=== PATIENT | female | born 1965 | race Caucasian/White ===

== ENCOUNTER 2020-11-20 09:45 | Emergency (ER) | payer OTHER ==
[2020-11-20 09:55] VITALS: BMI 27.4
[2020-11-20] MEDS ORDERED: chlordiazePOXIDE HCL 25 MG CAPSULE PO ONE (10:32)
[2020-11-20] MEDS ORDERED: METOPROLOL TARTRATE 25 MG TABLET (FP) PO ONE (10:39)
[2020-11-20] MEDS ORDERED: chlordiazePOXIDE HCL 25 MG CAPSULE ONE (10:42)
[2020-11-20] MEDS ORDERED: METOPROLOL TARTRATE 25 MG TABLET (FP) ONE (10:43)
[2020-11-20 11:14] LABS: BASO % 0.7 % (0-2.0); EOS % 0.5 % (0-4.5); HEMATOCRIT 42.7 % (32.4-45.2); HEMOGLOBIN 15.1 GM/dL (10.7-15.3); LYMPH % 20.9 % (8-40); MCH 32.5 pg (25.7-33.7); MCHC 35.3 g/dl (32.0-36.0); MEAN CELL VOLUME 91.9 fl (80-96); MEAN PLT VOLUME 8.8 fl (7.5-11.1); MONO % 8.5 % (3.8-10.2); NEUT % 69.4 % (42.8-82.8); PLATELET COUNT 273 K/MM3 (134-434); RBC 4.64 M/mm3 (3.60-5.2); RDW 12.6 % (11.6-15.6); WHITE BLOOD COUNT 6.7 K/mm3 (4.0-10.0)
[2020-11-20 11:23] LABS: INR 0.94 (0.83-1.09); PROTHROMBIN TIME (PATIENT) 11.6 SEC (9.7-13.0)
[2020-11-20 11:26] LABS: ACTIVATED PTT 27.9 SECONDS (25.2-36.5)
[2020-11-20 11:42] LABS: CHLORIDE 100 mmol/L (98-107); POTASSIUM 3.3 mmol/L (3.5-5.1); SODIUM 136 mmol/L (136-145)
[2020-11-20 11:44] LABS: CALCIUM 9.9 mg/dL (8.5-10.1)
[2020-11-20 11:45] LABS: ALBUMIN 4.4 g/dl (3.4-5.0); ANION GAP 10 MMOL/L (8-16); BLOOD UREA NITROGEN 8.6 mg/dL (7-18); CO2 26 mmol/L (21-32); GLUCOSE,RANDOM 140 mg/dL (74-106)
[2020-11-20 11:46] LABS: MAGNESIUM 1.9 mg/dL (1.8-2.4)
[2020-11-20] MEDS ORDERED: POTASSIUM CHLORIDE TABS 20 MEQ TABLET.ER (FP) PO ONE ×2 (11:47→11:58)
[2020-11-20 11:48] LABS: CREATININE 0.8 mg/dL (0.55-1.3); SGOT/AST 63 U/L (15-37); SGPT/ALT 73 U/L (13-61)
[2020-11-20 11:49] LABS: BILIRUBIN,TOTAL 1.2 mg/dL (0.2-1); TOT PROT 8.9 g/dl (6.4-8.2)
[2020-11-20 11:50] LABS: ALK PHOS 101 U/L (45-117)
[2020-11-20] MEDS ORDERED: METOPROLOL TARTRATE 5 MG/5 ML VIAL IVPUSH ONE (12:18)
[2020-11-20] MEDS ORDERED: METOPROLOL TARTRATE 5 MG/5 ML VIAL ONE (12:25)
[2020-11-20] MEDS ORDERED: diazePAM CARPU-JECT 10 MG/2 ML DISP.SYRIN IVPUSH ONE (12:32)
[2020-11-20] MEDS ORDERED: diazePAM CARPU-JECT 10 MG/2 ML DISP.SYRIN ONE (12:34)
[2020-11-20 13:13] VITALS: TEMP 98
[2020-11-20 13:27] VITALS: BP 136/84; PULSE 88
== END 2020-11-20 14:01 | disposition home or self-care (01) ==
LOC: JER 09:45
PROC: 3E033NZ Introduction of Analgesics, Hypnotics, Sedatives into Peripheral Vein, Percutaneous Approach (ICD-10-PCS; principal; 2020-11-20)
PROC: 3E033GC Introduction of Other Therapeutic Substance into Peripheral Vein, Percutaneous Approach (ICD-10-PCS; 2020-11-20)
DX: F10.920 Alcohol use, unspecified with intoxication, uncomplicated (principal); E87.6 Hypokalemia; I10 Essential (primary) hypertension
CPT/HCPCS: 36415; 71045-TC-FY; 80053; 80061; 80307; 82550; 82553; 83721; 83735; 84439; 84443; 84484; 84703; 85025; 85610; 85730; 93005; 93010; 99285-25; C9803; U0003

== ENCOUNTER 2021-09-04 20:27 | Emergency (ER) | payer OTHER ==
[2021-09-04 20:59] VITALS: PULSE 80; TEMP 98; BMI 29.7
[2021-09-04] MEDS ORDERED: THIAMINE HCL 200 MG/2 ML VIAL IVPB ONE (22:16)
[2021-09-04] MEDS ORDERED: MULTIVITAMINS (DAILY MVI) TABLET (FP) PO ONE (22:16)
[2021-09-04] MEDS ORDERED: FOLIC ACID 1 MG TABLET (FP) PO ONE (22:16)
[2021-09-04] MEDS ORDERED: THIAMINE HCL 200 MG/2 ML VIAL ONE (22:54)
[2021-09-04] MEDS ORDERED: MULTIVITAMINS (DAILY MVI) TABLET (FP) ONE (22:55)
[2021-09-04] MEDS ORDERED: FOLIC ACID 1 MG TABLET (FP) ONE (22:56)
[2021-09-04 23:35] LABS: BASO % 0.6 % (0-2.0); EOS % 2.9 % (0-4.5); HEMATOCRIT 41.9 % (32.4-45.2); HEMOGLOBIN 14.5 GM/dL (10.7-15.3); LYMPH % 59.8 % (8-40); MCH 33.2 pg (25.7-33.7); MCHC 34.7 g/dl (32.0-36.0); MEAN CELL VOLUME 95.6 fl (80-96); MEAN PLT VOLUME 8.1 fl (7.5-11.1); MONO % 4.7 % (3.8-10.2); PLATELET COUNT 249 10^3/uL (134-434); RBC 4.38 M/mm3 (3.60-5.2); RDW 13.2 % (11.6-15.6)
[2021-09-04 23:41] LABS: INR 0.97 (0.83-1.09); PROTHROMBIN TIME (PATIENT) 11.4 SEC (9.7-13.0)
[2021-09-04 23:44] LABS: ACTIVATED PTT 28.1 SECONDS (25.2-36.5)
[2021-09-05 00:20] LABS: CHLORIDE 113 mmol/L (98-107); SODIUM 146 mmol/L (136-145)
[2021-09-05 00:27] LABS: ALBUMIN 3.5 g/dl (3.4-5.0); ANION GAP 12 MMOL/L (8-16); BLOOD UREA NITROGEN 11.7 mg/dL (7-18); CALCIUM 8.1 mg/dL (8.5-10.1); CO2 21 mmol/L (21-32); LIPASE 165 U/L (73-393); MAGNESIUM 2.4 mg/dL (1.8-2.4)
[2021-09-05 00:30] LABS: CREATININE 0.7 mg/dL (0.55-1.3); SGOT/AST 182 U/L (15-37); SGPT/ALT 166 U/L (13-61)
[2021-09-05 00:31] LABS: BILIRUBIN,TOTAL 0.5 mg/dL (0.2-1); TOT PROT 7.9 g/dl (6.4-8.2)
[2021-09-05 00:32] LABS: ALK PHOS 103 U/L (45-117)
[2021-09-05 00:33] LABS: GLUCOSE,RANDOM 91 mg/dL (74-106)
[2021-09-05 02:46] VITALS: BP 133/71
== END 2021-09-05 02:48 | disposition home or self-care (01) ==
LOC: JER 20:27
PROC: 3E033NZ Introduction of Analgesics, Hypnotics, Sedatives into Peripheral Vein, Percutaneous Approach (ICD-10-PCS; principal; 2021-09-04)
DX: R07.9 Chest pain, unspecified (principal); R06.09 Other forms of dyspnea; F10.10 Alcohol abuse, uncomplicated
CPT/HCPCS: 36415; 71046-TC-FY; 80053; 82550; 83690; 83735; 84484; 85025; 85610; 85730; 87804; 87807; 93005; 93010; 96374; 99284-25; C9803; U0003; U0005

== ENCOUNTER 2021-09-23 22:55 | Inpatient (IN) | payer OTHER ==
[2021-09-24] MEDS ORDERED: ACETAMINOPHEN 500 MG TABLET (FP) PO ONE (01:29)
[2021-09-24 03:12] LABS: HEMATOCRIT 39.6 % (32.4-45.2); HEMOGLOBIN 14.1 GM/dL (10.7-15.3); MCH 33.7 pg (25.7-33.7); MCHC 35.6 g/dl (32.0-36.0); MEAN CELL VOLUME 94.6 fl (80-96); MEAN PLT VOLUME 8.2 fl (7.5-11.1); PLATELET COUNT 154 10^3/uL (134-434); RBC 4.19 M/mm3 (3.60-5.2); RDW 13.2 % (11.6-15.6); WHITE BLOOD COUNT 4.3 K/mm3 (4.0-10.0)
[2021-09-24] MEDS ORDERED: LORazepam 2 MG/ML SDV VIAL IVPUSH ONE (03:13)
[2021-09-24 03:20] LABS: INR 1.03 (0.83-1.09); PROTHROMBIN TIME (PATIENT) 11.8 SEC (9.7-13.0)
[2021-09-24 03:22] LABS: ACTIVATED PTT 24.8 SECONDS (25.2-36.5)
[2021-09-24 03:32] LABS: CHLORIDE 98 mmol/L (98-107); SODIUM 135 mmol/L (136-145)
[2021-09-24 03:34] LABS: CALCIUM 8.9 mg/dL (8.5-10.1)
[2021-09-24 03:35] LABS: ALBUMIN 4.2 g/dl (3.4-5.0); ANION GAP 14 MMOL/L (8-16); BLOOD UREA NITROGEN 8.8 mg/dL (7-18); CO2 23 mmol/L (21-32); GLUCOSE,RANDOM 142 mg/dL (74-106)
[2021-09-24 03:38] LABS: CREATININE 0.6 mg/dL (0.55-1.3); SGOT/AST 554 U/L (15-37); SGPT/ALT 396 U/L (13-61)
[2021-09-24 03:40] LABS: BILIRUBIN,TOTAL 1.5 mg/dL (0.2-1)
[2021-09-24 03:41] LABS: ALK PHOS 135 U/L (45-117)
[2021-09-24] MEDS ORDERED: LORazepam 2 MG/ML SDV VIAL ONE (03:43)
[2021-09-24 03:56] LABS: LACTIC ACID 3.7 mmol/L (0.4-2.0)
[2021-09-24] MEDS ORDERED: LACTATED RINGERS SOLUTION 1000 ML INFUS.BAG IV ONE ×2 (04:02→04:11)
[2021-09-24 05:33] LABS: EPI CELLS >36 /uL (0-25.1); HYALINE CASTS 4 /uL (0-3.1); PH,URINE 6.5 (5.0-8.0); URINE APPEARANCE CLOUDY; URINE BILIRUBIN 1+ (NEGATIVE); URINE COLOR DK YELLOW; URINE GLUCOSE (UA) NEGATIVE (NEGATIVE); URINE KETONE 1+ (NEGATIVE); URINE LEUK ESTERASE NEGATIVE (NEGATIVE); URINE NITRITE NEGATIVE (NEGATIVE); URINE PROTEIN 2+ (NEGATIVE); URINE RBC 10 /uL (0-23.9); URINE WBC 40 /uL (0-25.8)
[2021-09-24] MEDS ORDERED: LORazepam 1 MG TABLET PO PRN (05:55)
[2021-09-24] MEDS ORDERED: LORazepam 1 MG TABLET ONE (06:28)
[2021-09-24] MEDS ORDERED: SODIUM CHLORIDE 1,000 ML IV STA (07:02)
[2021-09-24] MEDS: LORazepam 2 MG TABLET PO SCH ×3 (07:07→17:21)
[2021-09-24] MEDS ORDERED: SODIUM CHLORIDE 0.9% 500 ML INFUS.BAG IV ONE (07:45)
[2021-09-24] MEDS ORDERED: METOPROLOL TARTRATE 25 MG TABLET (FP) ONE (09:02)
[2021-09-24] MEDS ORDERED: ENOXAPARIN NA (PORCINE) 40 MG/0.4 ML DISP.SYRIN SQ ONE (09:02)
[2021-09-24 10:15] LABS: URINE BACTERIA 289.4 /uL (0-1359)
[2021-09-24] MEDS: METOPROLOL TARTRATE 25 MG TABLET (FP) PO SCH ×2 (11:00→21:53)
[2021-09-24] MEDS: ENOXAPARIN NA (PORCINE) 40 MG/0.4 ML DISP.SYRIN SQ SCH (11:29)
[2021-09-24] MEDS ORDERED: amLODIPine BESYLATE 2.5 MG TABLET (FP) ONE (12:15)
[2021-09-24] MEDS: amLODIPine BESYLATE 5 MG TABLET (FP) PO SCH (12:20)
[2021-09-24 12:57] LABS: HEMATOCRIT 38.1 % (32.4-45.2); HEMOGLOBIN 13.1 GM/dL (10.7-15.3); MCHC 34.4 g/dl (32.0-36.0); MEAN CELL VOLUME 95.9 fl (80-96); MEAN PLT VOLUME 9.2 fl (7.5-11.1); PLATELET COUNT 142 10^3/uL (134-434); RBC 3.97 M/mm3 (3.60-5.2); RDW 13.3 % (11.6-15.6); WHITE BLOOD COUNT 2.8 K/mm3 (4.0-10.0)
[2021-09-24 12:58] LABS: INR 1.1 (0.83-1.09); PROTHROMBIN TIME (PATIENT) 12.7 SEC (9.7-13.0)
[2021-09-24 13:52] LABS: CHLORIDE 98 mmol/L (98-107); SODIUM 136 mmol/L (136-145)
[2021-09-24 14:03] LABS: ALBUMIN 3.8 g/dl (3.4-5.0); CALCIUM 9.2 mg/dL (8.5-10.1); SGPT/ALT 333 U/L (13-61)
[2021-09-24 14:04] VITALS: BMI 27.8
[2021-09-24 14:04] LABS: ANION GAP 10 MMOL/L (8-16); BLOOD UREA NITROGEN 8.6 mg/dL (7-18); CO2 28 mmol/L (21-32); GLUCOSE,RANDOM 119 mg/dL (74-106); LIPASE 314 U/L (73-393); MAGNESIUM 2.2 mg/dL (1.8-2.4)
[2021-09-24 14:07] LABS: CREATININE 0.6 mg/dL (0.55-1.3); SGOT/AST 449 U/L (15-37); TOT PROT 7.4 g/dl (6.4-8.2)
[2021-09-24 14:08] LABS: ALK PHOS 122 U/L (45-117); BILIRUBIN,TOTAL 2.9 mg/dL (0.2-1)
[2021-09-24] MEDS ORDERED: PNEUMOC 13-VAL CONJ-DIP CRM/PF 0.5 ML DISP.SYRIN IM ONE (14:16)
[2021-09-24] MEDS ORDERED: FLU VACC QS2021-22(6MOS UP)/PF 60 MCG/0.5 ML SYRINGE IM ONE (17:00)
[2021-09-24] MEDS ORDERED: PNEUMOCOCCAL 23 VACCINE 0.5 ML VIAL IM ONE (17:00)
[2021-09-24] MEDS: LORazepam 1 MG TABLET PO SCH (18:06)
[2021-09-25] MEDS ORDERED: LORazepam 1 MG TABLET PO ONE (03:44)
[2021-09-25] MEDS: LORazepam 1 MG TABLET PO SCH ×5 (05:15→23:07)
[2021-09-25] MEDS: LACTULOSE 20 GM/30 ML UDC (FOR ORAL USE ONLY) PO SCH ×3 (08:31→21:44)
[2021-09-25] MEDS: amLODIPine BESYLATE 5 MG TABLET (FP) PO SCH (09:06)
[2021-09-25] MEDS: METOPROLOL TARTRATE 25 MG TABLET (FP) PO SCH ×2 (09:07→21:44)
[2021-09-25] MEDS: ENOXAPARIN NA (PORCINE) 40 MG/0.4 ML DISP.SYRIN SQ SCH (09:07)
[2021-09-25] MEDS: LISINOPRIL 10 MG TABLET PO SCH (09:23)
[2021-09-25] MEDS ORDERED: NIFEdipine E.R 60 MG TABLET PO SCH (10:30)
[2021-09-25 10:35] LABS: HEMOGLOBIN 13.7 GM/dL (10.7-15.3); MCHC 34.1 g/dl (32.0-36.0); MEAN CELL VOLUME 96.7 fl (80-96); MEAN PLT VOLUME 9.6 fl (7.5-11.1); PLATELET COUNT 142 10^3/uL (134-434); RBC 4.14 M/mm3 (3.60-5.2); WHITE BLOOD COUNT 2.6 K/mm3 (4.0-10.0)
[2021-09-25 10:41] LABS: INR 1.02 (0.83-1.09); PROTHROMBIN TIME (PATIENT) 11.7 SEC (9.7-13.0)
[2021-09-25 10:50] LABS: ALBUMIN 3.8 g/dl (3.4-5.0); CALCIUM 9.6 mg/dL (8.5-10.1)
[2021-09-25 10:51] LABS: BLOOD UREA NITROGEN 9.3 mg/dL (7-18)
[2021-09-25 10:54] LABS: CREATININE 0.7 mg/dL (0.55-1.3)
[2021-09-25 10:55] LABS: BILIRUBIN,TOTAL 2.5 mg/dL (0.2-1); TOT PROT 7.5 g/dl (6.4-8.2)
[2021-09-25] MEDS ORDERED: LISINOPRIL 5 MG TABLET PO ONE (23:28)
[2021-09-26] MEDS ORDERED: LORazepam 0.5 MG TABLET PO PRN
[2021-09-26] MEDS: LORazepam 0.5 MG TABLET PO SCH ×4 (06:03→22:23)
[2021-09-26] MEDS: LACTULOSE 20 GM/30 ML UDC (FOR ORAL USE ONLY) PO SCH (06:04)
[2021-09-26] MEDS ORDERED: NIFEdipine E.R 60 MG TABLET PO SCH (10:00)
[2021-09-26] MEDS: ENOXAPARIN NA (PORCINE) 40 MG/0.4 ML DISP.SYRIN SQ SCH (10:24)
[2021-09-26] MEDS: METOPROLOL TARTRATE 25 MG TABLET (FP) PO SCH ×2 (10:29→22:22)
[2021-09-26] MEDS: LISINOPRIL 10 MG TABLET PO SCH (10:29)
[2021-09-26 10:41] LABS: HEMATOCRIT 41.3 % (32.4-45.2); HEMOGLOBIN 14.1 GM/dL (10.7-15.3); MCH 32.9 pg (25.7-33.7); MCHC 34.2 g/dl (32.0-36.0); MEAN CELL VOLUME 96.2 fl (80-96); MEAN PLT VOLUME 9.7 fl (7.5-11.1); PLATELET COUNT 147 10^3/uL (134-434); RBC 4.29 M/mm3 (3.60-5.2); RDW 13.4 % (11.6-15.6); WHITE BLOOD COUNT 3.4 K/mm3 (4.0-10.0)
[2021-09-26 10:45] LABS: INR 1.04 (0.83-1.09)
[2021-09-26 11:00] LABS: CALCIUM 9.7 mg/dL (8.5-10.1)
[2021-09-26 11:01] LABS: BLOOD UREA NITROGEN 6.9 mg/dL (7-18)
[2021-09-26 11:04] LABS: CREATININE 0.7 mg/dL (0.55-1.3)
[2021-09-26 11:06] LABS: BILIRUBIN,TOTAL 2.3 mg/dL (0.2-1); TOT PROT 7.9 g/dl (6.4-8.2)
[2021-09-26] MEDS: POTASSIUM CHLORIDE TABS 20 MEQ TABLET.ER (FP) PO SCH ×2 (17:42→22:22)
[2021-09-26 18:57] LABS: COCAINE, UR NEGATIVE (NEGATIVE); METHADONE, UR NEGATIVE (NEGATIVE); OPIATES, URI NEGATIVE (NEGATIVE); PHENCYCLIDINE,URINE NEGATIVE (NEGATIVE); URINE AMPHETAMINES NEGATIVE (NEGATIVE); URINE BARBITURATES NEGATIVE (NEGATIVE); URINE BENZODIAZEPINES NEGATIVE (NEGATIVE)
[2021-09-26] MEDS ORDERED: LISINOPRIL 10 MG TABLET PO SCH (19:03)
[2021-09-27] MEDS ORDERED: hydrALAZINE HCL 20 MG/ML VIAL IVPUSH ONE (00:20)
[2021-09-27] MEDS ORDERED: LORazepam 0.5 MG TABLET PO ONE (05:00)
[2021-09-27] MEDS ORDERED: LACTULOSE 20 GM/30 ML UDC (FOR ORAL USE ONLY) PO SCH (10:00)
[2021-09-27] MEDS: ENOXAPARIN NA (PORCINE) 40 MG/0.4 ML DISP.SYRIN SQ SCH (11:12)
[2021-09-27] MEDS: METOPROLOL TARTRATE 25 MG TABLET (FP) PO SCH ×2 (11:13→22:24)
[2021-09-27] MEDS: LISINOPRIL 20 MG TABLET PO SCH (11:13)
[2021-09-27 11:24] LABS: HEMATOCRIT 40.5 % (32.4-45.2); HEMOGLOBIN 13.8 GM/dL (10.7-15.3); MCH 33.1 pg (25.7-33.7); MCHC 34.1 g/dl (32.0-36.0); MEAN CELL VOLUME 97.1 fl (80-96); MEAN PLT VOLUME 9.7 fl (7.5-11.1); PLATELET COUNT 142 10^3/uL (134-434); RBC 4.17 M/mm3 (3.60-5.2); RDW 13.3 % (11.6-15.6); WHITE BLOOD COUNT 3.3 K/mm3 (4.0-10.0)
[2021-09-27 11:25] LABS: INR 0.99 (0.83-1.09); PROTHROMBIN TIME (PATIENT) 11.4 SEC (9.7-13.0)
[2021-09-27 12:18] LABS: ALBUMIN 3.6 g/dl (3.4-5.0); BLOOD UREA NITROGEN 13.5 mg/dL (7-18)
[2021-09-27 12:20] LABS: CALCIUM 9.5 mg/dL (8.5-10.1); MAGNESIUM 2.4 mg/dL (1.8-2.4)
[2021-09-27 12:21] LABS: CREATININE 0.7 mg/dL (0.55-1.3)
[2021-09-27 12:23] LABS: BILIRUBIN,TOTAL 1.3 mg/dL (0.2-1); TOT PROT 7.4 g/dl (6.4-8.2)
[2021-09-27 22:06] LABS: HCV RNA GENOTYPE 1b (.)
[2021-09-28] MEDS: LISINOPRIL 20 MG TABLET PO SCH (10:14)
[2021-09-28] MEDS: METOPROLOL TARTRATE 25 MG TABLET (FP) PO SCH ×2 (10:14→21:59)
[2021-09-28] MEDS: ENOXAPARIN NA (PORCINE) 40 MG/0.4 ML DISP.SYRIN SQ SCH (10:14)
[2021-09-28 11:01] LABS: HEMATOCRIT 40.6 % (32.4-45.2); MCH 33.8 pg (25.7-33.7); MCHC 34.5 g/dl (32.0-36.0); MEAN CELL VOLUME 97.9 fl (80-96); MEAN PLT VOLUME 9.4 fl (7.5-11.1); PLATELET COUNT 152 10^3/uL (134-434); RBC 4.15 M/mm3 (3.60-5.2); RDW 13.5 % (11.6-15.6); WHITE BLOOD COUNT 3.7 K/mm3 (4.0-10.0)
[2021-09-28 11:10] LABS: INR 0.99 (0.83-1.09); PROTHROMBIN TIME (PATIENT) 11.4 SEC (9.7-13.0)
[2021-09-28 11:36] LABS: BLOOD UREA NITROGEN 13.4 mg/dL (7-18); CALCIUM 9.5 mg/dL (8.5-10.1)
[2021-09-28 11:37] LABS: ALBUMIN 3.8 g/dl (3.4-5.0); MAGNESIUM 2.1 mg/dL (1.8-2.4)
[2021-09-28 11:39] LABS: BILIRUBIN,DIRECT 0.5 mg/dL (0.0-0.2); CREATININE 0.6 mg/dL (0.55-1.3)
[2021-09-28 11:41] LABS: BILIRUBIN,TOTAL 1.1 mg/dL (0.2-1); TOT PROT 7.6 g/dl (6.4-8.2)
[2021-09-28] MEDS: LACTULOSE 20 GM/30 ML UDC (FOR ORAL USE ONLY) PO SCH (21:59)
[2021-09-29] MEDS: LACTULOSE 20 GM/30 ML UDC (FOR ORAL USE ONLY) PO SCH ×3 (05:07→21:47)
[2021-09-29] MEDS: LISINOPRIL 20 MG TABLET PO SCH (09:28)
[2021-09-29] MEDS: METOPROLOL TARTRATE 25 MG TABLET (FP) PO SCH ×2 (09:28→21:47)
[2021-09-29] MEDS: ENOXAPARIN NA (PORCINE) 40 MG/0.4 ML DISP.SYRIN SQ SCH (09:28)
[2021-09-29 10:02] LABS: EOS % 3.7 % (0-4.5); HEMATOCRIT 42.8 % (32.4-45.2); HEMOGLOBIN 14.5 GM/dL (10.7-15.3); LYMPH % 41.2 % (8-40); MCH 33.4 pg (25.7-33.7); MCHC 33.8 g/dl (32.0-36.0); MEAN CELL VOLUME 98.8 fl (80-96); MEAN PLT VOLUME 9.6 fl (7.5-11.1); MONO % 14.9 % (3.8-10.2); NEUT % 39.2 % (42.8-82.8); PLATELET COUNT 185 10^3/uL (134-434); RBC 4.33 M/mm3 (3.60-5.2); RDW 13.6 % (11.6-15.6); WHITE BLOOD COUNT 3.5 K/mm3 (4.0-10.0)
[2021-09-29 10:27] LABS: BLOOD UREA NITROGEN 11.2 mg/dL (7-18)
[2021-09-29 10:28] LABS: ALBUMIN 4.2 g/dl (3.4-5.0); CALCIUM 10.1 mg/dL (8.5-10.1); CREATININE 0.7 mg/dL (0.55-1.3)
[2021-09-29 10:30] LABS: BILIRUBIN,TOTAL 1.2 mg/dL (0.2-1); TOT PROT 8.2 g/dl (6.4-8.2)
[2021-09-29 10:31] LABS: BILIRUBIN,DIRECT 0.5 mg/dL (0.0-0.2)
[2021-09-30] MEDS: LACTULOSE 20 GM/30 ML UDC (FOR ORAL USE ONLY) PO SCH ×2 (05:51→13:08)
[2021-09-30] MEDS: ENOXAPARIN NA (PORCINE) 40 MG/0.4 ML DISP.SYRIN SQ SCH (09:15)
[2021-09-30] MEDS: METOPROLOL TARTRATE 25 MG TABLET (FP) PO SCH (09:15)
[2021-09-30] MEDS: LISINOPRIL 20 MG TABLET PO SCH (09:15)
[2021-09-30 10:50] VITALS: BP 113/77; PULSE 63; TEMP 98.3
[2021-09-30 12:28] LABS: BASO % 1.2 % (0-2.0); EOS % 2.3 % (0-4.5); HEMATOCRIT 42.6 % (32.4-45.2); HEMOGLOBIN 14.2 GM/dL (10.7-15.3); LYMPH % 37.9 % (8-40); MCH 33.2 pg (25.7-33.7); MCHC 33.3 g/dl (32.0-36.0); MEAN CELL VOLUME 99.7 fl (80-96); MEAN PLT VOLUME 9.8 fl (7.5-11.1); MONO % 18.6 % (3.8-10.2); PLATELET COUNT 198 10^3/uL (134-434); RBC 4.28 M/mm3 (3.60-5.2); RDW 13.8 % (11.6-15.6); WHITE BLOOD COUNT 3.6 K/mm3 (4.0-10.0)
[2021-09-30 13:00] LABS: ALBUMIN 4.2 g/dl (3.4-5.0); BLOOD UREA NITROGEN 12.1 mg/dL (7-18); MAGNESIUM 2.6 mg/dL (1.8-2.4)
[2021-09-30 13:02] LABS: BILIRUBIN,DIRECT 0.5 mg/dL (0.0-0.2); CREATININE 0.7 mg/dL (0.55-1.3); PHOSPHOROUS 3.9 mg/dL (2.5-4.9)
[2021-09-30 13:04] LABS: ACTIVATED PTT 31.1 SECONDS (25.2-36.5); TOT PROT 8.4 g/dl (6.4-8.2)
[2021-09-30 13:07] LABS: INR 0.97 (0.83-1.09); PROTHROMBIN TIME (PATIENT) 11.2 SEC (9.7-13.0)
[2021-09-30 20:09] LABS: GLIADIN ANTIBODY IGA 2 units (0-19); GLIADIN ANTIBODY IGG 1 units (0-19); TRANSGLUTAMINASE IGG 4 U/mL (0-5)
== END 2021-09-30 14:43 | disposition home or self-care (01) | DRG 775 ==
LOC: JER 22:55 → JERBED 09-24 05:21 → J5S 09-24 13:21
PROVIDERS: ADMIT Hospitalist
DX: F10.230 Alcohol dependence with withdrawal, uncomplicated (principal); G93.41 Metabolic encephalopathy; I10 Essential (primary) hypertension; Z91.14 Patient's other noncompliance with medication regimen; B19.20 Unspecified viral hepatitis C without hepatic coma; R07.89 Other chest pain; R19.7 Diarrhea, unspecified; R74.01 Elevation of levels of liver transaminase levels; E87.1 Hypo-osmolality and hyponatremia; E86.0 Dehydration; D72.819 Decreased white blood cell count, unspecified; K70.10 Alcoholic hepatitis without ascites; K72.90 Hepatic failure, unspecified without coma; R79.89 Other specified abnormal findings of blood chemistry
CPT/HCPCS: 36415; 71046-TC-FY; 74181-TC; 76705-TC; 80053; 80076; 80307; 81003; 82105; 82140; 82550; 82553; 82728; 82784; 83516; 83540; 83550; 83605; 83690; 83735; 84100; 84484; 85025; 85027; 85610; 85730; 86038; 86704; 86705; 86707; 86709; 86803; 87086; 87186; 87350; 87517; 87522; 87799; 87804; 87902; 93005; 93010; 97116-GP; 97161-GP; 99285-25; C9803; U0003; U0005

== ENCOUNTER 2021-11-10 19:51 | Inpatient (IN) | payer OTHER ==
[2021-11-10 20:18] VITALS: BMI 26.4
[2021-11-10] MEDS ORDERED: SODIUM CHLORIDE 1,000 ML IV STA (20:21)
[2021-11-10 21:37] LABS: BASO % 0.9 % (0-2.0); HEMATOCRIT 42.3 % (32.4-45.2); HEMOGLOBIN 14.7 GM/dL (10.7-15.3); LYMPH % 22.4 % (8-40); MCH 33.2 pg (25.7-33.7); MCHC 34.8 g/dl (32.0-36.0); MEAN CELL VOLUME 95.3 fl (80-96); MEAN PLT VOLUME 8.1 fl (7.5-11.1); MONO % 9.5 % (3.8-10.2); NEUT % 67.2 % (42.8-82.8); PLATELET COUNT 315 10^3/uL (134-434); RBC 4.44 M/mm3 (3.60-5.2); RDW 13.7 % (11.6-15.6); WHITE BLOOD COUNT 6.9 K/mm3 (4.0-10.0)
[2021-11-10 21:54] LABS: CHLORIDE 102 mmol/L (98-107); SODIUM 136 mmol/L (136-145)
[2021-11-10 21:56] LABS: BLOOD UREA NITROGEN 9.9 mg/dL (7-18); CO2 27 mmol/L (21-32)
[2021-11-10 21:57] LABS: GLUCOSE,RANDOM 129 mg/dL (74-106)
[2021-11-10 21:59] LABS: CREATININE 2.6 mg/dL (0.55-1.3); SGOT/AST 103 U/L (15-37); SGPT/ALT 80 U/L (13-61)
[2021-11-10 22:01] LABS: BILIRUBIN,TOTAL 0.7 mg/dL (0.2-1); TOT PROT 8.5 g/dl (6.4-8.2)
[2021-11-10 22:02] LABS: ALK PHOS 104 U/L (45-117)
[2021-11-10 22:16] LABS: ANION GAP 7 MMOL/L (8-16)
[2021-11-10 22:59] LABS: ACTIVATED PTT 32.5 SECONDS (25.2-36.5); INR 0.99 (0.83-1.09); PROTHROMBIN TIME (PATIENT) 11.4 SEC (9.7-13.0)
[2021-11-10 23:00] LABS: CALCIUM 8.8 mg/dL (8.5-10.1)
[2021-11-10 23:01] LABS: ALBUMIN 4.1 g/dl (3.4-5.0)
[2021-11-10 23:03] LABS: CREATININE 2.6 mg/dL (0.55-1.3)
[2021-11-10 23:05] LABS: BILIRUBIN,TOTAL 0.7 mg/dL (0.2-1); TOT PROT 7.6 g/dl (6.4-8.2)
[2021-11-10] MEDS ORDERED: FOLIC ACID INJECTION - 1 MG, THIAMINE HCL 100 MG, MULTIVIT INJECTION ADULT 10 ML in SOD... IVPB ONE (23:36)
[2021-11-11 01:00] LABS: MAGNESIUM 2.2 mg/dL (1.8-2.4)
[2021-11-11] MEDS ORDERED: SODIUM CHLORIDE 1,000 ML IV SCH (01:00)
[2021-11-11] MEDS ORDERED: LORazepam 2 MG/ML SDV VIAL IVPUSH PRN ×2 (01:02→11:21)
[2021-11-11 01:04] LABS: PHOSPHOROUS 4.2 mg/dL (2.5-4.9)
[2021-11-11] MEDS ORDERED: HEPARIN NA (PORCINE) 5,000 UNITS/ML 1ML VIAL ONE (06:21)
[2021-11-11] MEDS: HEPARIN NA (PORCINE) 5,000 UNITS/ML 1ML VIAL SQ SCH ×3 (06:24→22:21)
[2021-11-11 08:36] LABS: BASO % 0.4 % (0-2.0); EOS % 0.1 % (0-4.5); HEMATOCRIT 34.4 % (32.4-45.2); HEMOGLOBIN 12.3 GM/dL (10.7-15.3); LYMPH % 29.6 % (8-40); MCH 33.9 pg (25.7-33.7); MCHC 35.7 g/dl (32.0-36.0); MEAN CELL VOLUME 94.9 fl (80-96); MEAN PLT VOLUME 8.5 fl (7.5-11.1); NEUT % 60.9 % (42.8-82.8); PLATELET COUNT 261 10^3/uL (134-434); RBC 3.62 M/mm3 (3.60-5.2); RDW 13.6 % (11.6-15.6); WHITE BLOOD COUNT 6.8 K/mm3 (4.0-10.0)
[2021-11-11 08:58] LABS: ALBUMIN 3.5 g/dl (3.4-5.0); CALCIUM 8.1 mg/dL (8.5-10.1)
[2021-11-11 08:59] LABS: BLOOD UREA NITROGEN 10.1 mg/dL (7-18); MAGNESIUM 2.2 mg/dL (1.8-2.4)
[2021-11-11 09:02] LABS: PHOSPHOROUS 5.1 mg/dL (2.5-4.9)
[2021-11-11 09:03] LABS: BILIRUBIN,TOTAL 0.8 mg/dL (0.2-1); TOT PROT 6.5 g/dl (6.4-8.2)
[2021-11-11] MEDS: THIAMINE HCL 100 MG TABLET (FP) PO SCH (10:35)
[2021-11-11] MEDS: NICOTINE 14 MG/24 HOURS TOPICAL PATCH TD SCH (10:35)
[2021-11-11] MEDS: FOLIC ACID 1 MG TABLET (FP) PO SCH (10:35)
[2021-11-11] MEDS ORDERED: FOLIC ACID 1 MG TABLET (FP) ONE (10:51)
[2021-11-11] MEDS ORDERED: THIAMINE HCL 100 MG TABLET (FP) ONE (11:01)
[2021-11-11] MEDS: SODIUM CHLORIDE 1,000 ML IV SCH (11:26)
[2021-11-11 15:18] LABS: COCAINE, UR NEGATIVE (NEGATIVE); METHADONE, UR NEGATIVE (NEGATIVE); OPIATES, URI NEGATIVE (NEGATIVE); PHENCYCLIDINE,URINE NEGATIVE (NEGATIVE)
[2021-11-11 15:19] LABS: URINE BARBITURATES NEGATIVE (NEGATIVE); URINE BENZODIAZEPINES NEGATIVE (NEGATIVE)
[2021-11-11 15:21] LABS: URINE AMPHETAMINES NEGATIVE (NEGATIVE)
[2021-11-11 15:32] LABS: URINE APPEARANCE CLEAR; URINE BILIRUBIN NEGATIVE (NEGATIVE); URINE COLOR YELLOW; URINE GLUCOSE (UA) NEGATIVE (NEGATIVE); URINE KETONE NEGATIVE (NEGATIVE); URINE LEUK ESTERASE NEGATIVE (NEGATIVE); URINE NITRITE NEGATIVE (NEGATIVE); URINE PROTEIN NEGATIVE (NEGATIVE); URINE UROBILINOGEN 0.2 mg/dL (0.2-1.0)
[2021-11-11] MEDS ORDERED: LORazepam 1 MG TABLET PO PRN (16:59)
[2021-11-11] MEDS: LORazepam 1 MG TABLET PO SCH ×2 (18:48→22:21)
[2021-11-12] MEDS: HEPARIN NA (PORCINE) 5,000 UNITS/ML 1ML VIAL SQ SCH ×2 (05:52→22:03)
[2021-11-12] MEDS: LORazepam 1 MG TABLET PO SCH ×4 (05:52→22:02)
[2021-11-12] MEDS: SODIUM CHLORIDE 1,000 ML IV SCH ×2 (05:52→11:42)
[2021-11-12] MEDS: FOLIC ACID 1 MG TABLET (FP) PO SCH (10:27)
[2021-11-12] MEDS: THIAMINE HCL 100 MG TABLET (FP) PO SCH (10:27)
[2021-11-12] MEDS: NICOTINE 14 MG/24 HOURS TOPICAL PATCH TD SCH (10:28)
[2021-11-12 12:43] LABS: BASO % 0.8 % (0-2.0); EOS % 0.5 % (0-4.5); HEMATOCRIT 34.5 % (32.4-45.2); LYMPH % 31.9 % (8-40); MCH 33.5 pg (25.7-33.7); MCHC 34.9 g/dl (32.0-36.0); MEAN CELL VOLUME 95.8 fl (80-96); MEAN PLT VOLUME 9.2 fl (7.5-11.1); NEUT % 57.8 % (42.8-82.8); PLATELET COUNT 235 10^3/uL (134-434); RDW 13.4 % (11.6-15.6); WHITE BLOOD COUNT 4.3 K/mm3 (4.0-10.0)
[2021-11-12 12:59] LABS: ALBUMIN 3.3 g/dl (3.4-5.0); CALCIUM 8.8 mg/dL (8.5-10.1)
[2021-11-12 13:02] LABS: CREATININE 2.3 mg/dL (0.55-1.3)
[2021-11-12 13:03] LABS: BILIRUBIN,TOTAL 1.1 mg/dL (0.2-1)
[2021-11-12 13:05] LABS: TOT PROT 6.5 g/dl (6.4-8.2)
[2021-11-12] MEDS: SODIUM CHLORIDE 0.45% 1,000 ML IV SCH (16:37)
[2021-11-12 18:55] LABS: COCAINE, UR NEGATIVE (NEGATIVE); URINE BENZODIAZEPINES NEGATIVE (NEGATIVE)
[2021-11-12 18:56] LABS: PHENCYCLIDINE,URINE NEGATIVE (NEGATIVE)
[2021-11-12 18:58] LABS: METHADONE, UR NEGATIVE (NEGATIVE); OPIATES, URI NEGATIVE (NEGATIVE); URINE AMPHETAMINES NEGATIVE (NEGATIVE); URINE BARBITURATES NEGATIVE (NEGATIVE)
[2021-11-13] MEDS: LORazepam 1 MG TABLET PO SCH ×4 (05:46→23:01)
[2021-11-13] MEDS ORDERED: amLODIPine BESYLATE 10 MG TABLET (FP) PO ONE (09:12)
[2021-11-13] MEDS ORDERED: amLODIPine BESYLATE 5 MG TABLET (FP) PO ONE ×3 (09:13→15:15)
[2021-11-13 09:19] LABS: BASO % 0.9 % (0-2.0); EOS % 1.1 % (0-4.5); HEMOGLOBIN 13.6 GM/dL (10.7-15.3); LYMPH % 25.3 % (8-40); MCH 33.7 pg (25.7-33.7); MCHC 35.7 g/dl (32.0-36.0); MEAN CELL VOLUME 94.4 fl (80-96); MEAN PLT VOLUME 8.6 fl (7.5-11.1); MONO % 8.4 % (3.8-10.2); NEUT % 64.3 % (42.8-82.8); PLATELET COUNT 218 10^3/uL (134-434); RBC 4.02 M/mm3 (3.60-5.2); RDW 13.3 % (11.6-15.6); WHITE BLOOD COUNT 4.4 K/mm3 (4.0-10.0)
[2021-11-13 09:48] LABS: ALBUMIN 3.9 g/dl (3.4-5.0); BLOOD UREA NITROGEN 11.2 mg/dL (7-18); CALCIUM 9.2 mg/dL (8.5-10.1)
[2021-11-13 09:51] LABS: CREATININE 1.9 mg/dL (0.55-1.3)
[2021-11-13 09:52] LABS: TOT PROT 7.5 g/dl (6.4-8.2)
[2021-11-13 09:53] LABS: BILIRUBIN,TOTAL 1.2 mg/dL (0.2-1)
[2021-11-13] MEDS: NICOTINE 14 MG/24 HOURS TOPICAL PATCH TD SCH (10:29)
[2021-11-13] MEDS: HEPARIN NA (PORCINE) 5,000 UNITS/ML 1ML VIAL SQ SCH ×2 (10:29→21:15)
[2021-11-13] MEDS: THIAMINE HCL 100 MG TABLET (FP) PO SCH (10:29)
[2021-11-13] MEDS: METOPROLOL TARTRATE 25 MG TABLET (FP) PO SCH ×2 (10:29→21:15)
[2021-11-13] MEDS: FOLIC ACID 1 MG TABLET (FP) PO SCH (10:29)
[2021-11-13] MEDS: SODIUM CHLORIDE 0.45% 1,000 ML IV SCH (16:20)
[2021-11-14] MEDS ORDERED: LORazepam 0.5 MG TABLET PO PRN
[2021-11-14] MEDS: LORazepam 0.5 MG TABLET PO SCH ×4 (05:37→22:45)
[2021-11-14] MEDS: METOPROLOL TARTRATE 50 MG TABLET (FP) PO SCH ×2 (10:58→21:22)
[2021-11-14] MEDS: NICOTINE 14 MG/24 HOURS TOPICAL PATCH TD SCH (10:58)
[2021-11-14] MEDS: FOLIC ACID 1 MG TABLET (FP) PO SCH (10:58)
[2021-11-14] MEDS: amLODIPine BESYLATE 10 MG TABLET (FP) PO SCH (10:59)
[2021-11-14] MEDS: THIAMINE HCL 100 MG TABLET (FP) PO SCH (10:59)
[2021-11-14] MEDS: HEPARIN NA (PORCINE) 5,000 UNITS/ML 1ML VIAL SQ SCH ×2 (10:59→21:22)
[2021-11-14 11:10] LABS: BLOOD UREA NITROGEN 17.9 mg/dL (7-18); CALCIUM 9.7 mg/dL (8.5-10.1)
[2021-11-14 11:13] LABS: CREATININE 1.3 mg/dL (0.55-1.3)
[2021-11-14] MEDS: LISINOPRIL 10 MG TABLET PO SCH (17:32)
[2021-11-15] MEDS ORDERED: LORazepam 0.5 MG TABLET PO ONE (05:00)
[2021-11-15 08:39] VITALS: BP 114/72; PULSE 74; TEMP 98.1
[2021-11-15] MEDS: THIAMINE HCL 100 MG TABLET (FP) PO SCH (09:42)
[2021-11-15] MEDS: amLODIPine BESYLATE 10 MG TABLET (FP) PO SCH (09:42)
[2021-11-15] MEDS: METOPROLOL TARTRATE 50 MG TABLET (FP) PO SCH (09:42)
[2021-11-15] MEDS: FOLIC ACID 1 MG TABLET (FP) PO SCH (09:42)
[2021-11-15] MEDS: NICOTINE 14 MG/24 HOURS TOPICAL PATCH TD SCH (09:42)
[2021-11-15] MEDS: HEPARIN NA (PORCINE) 5,000 UNITS/ML 1ML VIAL SQ SCH (09:42)
[2021-11-15] MEDS: LISINOPRIL 10 MG TABLET PO SCH (09:43)
[2021-11-15 09:46] LABS: CALCIUM 9.3 mg/dL (8.5-10.1)
[2021-11-15 09:47] LABS: BLOOD UREA NITROGEN 21.8 mg/dL (7-18)
[2021-11-15 09:50] LABS: CREATININE 1.1 mg/dL (0.55-1.3)
== END 2021-11-15 17:33 | disposition home or self-care (01) | DRG 775 ==
LOC: JER 19:51 → JERBED 23:52 → J6S 11-11 13:29
PROVIDERS: ADMIT Internal Medicine
PROC: HZ2ZZZZ Detoxification Services for Substance Abuse Treatment (ICD-10-PCS; principal; 2021-11-10)
DX: F10.239 Alcohol dependence with withdrawal, unspecified (principal); N17.9 Acute kidney failure, unspecified; K70.30 Alcoholic cirrhosis of liver without ascites; B19.20 Unspecified viral hepatitis C without hepatic coma; E78.5 Hyperlipidemia, unspecified; N18.9 Chronic kidney disease, unspecified; I12.9 Hypertensive chronic kidney disease with stage 1 through stage 4 chronic kidney disease, or unspecified chronic kidney disease
CPT/HCPCS: 36415; 76705-TC; 76775-TC; 80048; 80053; 80307; 81003; 82436; 82550; 82570; 82962; 83735; 83874; 83930; 83935; 84100; 84133; 84156; 84300; 85025; 85610; 85730; 87086; 87205; 93005; 93010; 99285-25; C9803-CS; J1644; U0003; U0005

== ENCOUNTER 2022-12-18 20:54 | Emergency (ER) | payer OTHER ==
[2022-12-18 20:59] VITALS: BP 112/77; PULSE 75; RESP 20; TEMP 98.1; BMI 24.5
[2022-12-18] MEDS ORDERED: ACETAMINOPHEN 1000 MG/100 ML BAG IVPB ONE (21:59)
[2022-12-18] MEDS ORDERED: SODIUM CHLORIDE 1,000 ML IV STA (21:59)
[2022-12-18] MEDS ORDERED: ACETAMINOPHEN INJECTION 100 ML IVPB ONE (22:11)
[2022-12-18 23:01] LABS: BASO % 1.3 % (0-2.0); HEMATOCRIT 42.3 % (32.4-45.2); HEMOGLOBIN 14.7 GM/dL (10.7-15.3); LYMPH % 55.7 % (8-40); MCHC 34.7 g/dl (32.0-36.0); MEAN CELL VOLUME 92.5 fl (80-96); MEAN PLT VOLUME 8.1 fl (7.5-11.1); MONO % 5.7 % (3.8-10.2); NEUT % 32.3 % (42.8-82.8); PLATELET COUNT 292 10^3/uL (134-434); RBC 4.58 M/mm3 (3.60-5.2); RDW 13.2 % (11.6-15.6); WHITE BLOOD COUNT 5.3 K/mm3 (4.0-10.0)
[2022-12-18 23:05] LABS: EPI CELLS 27 /uL (0-25.1); HYALINE CASTS 2 /uL (0-3.1); URINE APPEARANCE CLEAR; URINE BACTERIA 227 /uL (0-1359); URINE BILIRUBIN NEGATIVE (NEGATIVE); URINE COLOR YELLOW; URINE GLUCOSE (UA) NEGATIVE (NEGATIVE); URINE KETONE NEGATIVE (NEGATIVE); URINE LEUK ESTERASE 2+ (NEGATIVE); URINE NITRITE NEGATIVE (NEGATIVE); URINE PROTEIN NEGATIVE (NEGATIVE); URINE RBC 7 /uL (0-23.9); URINE WBC 29 /uL (0-25.8)
[2022-12-18 23:25] LABS: INR 0.98 (0.83-1.09); PROTHROMBIN TIME (PATIENT) 11.4 SEC (9.7-13.0)
[2022-12-18 23:27] LABS: ACTIVATED PTT 31.9 SECONDS (25.2-36.5); BLOOD UREA NITROGEN 10.1 mg/dL (7-18); CALCIUM 9.2 mg/dL (8.5-10.1)
[2022-12-18 23:30] LABS: CREATININE 0.6 mg/dL (0.55-1.3)
[2022-12-18 23:32] LABS: BILIRUBIN,TOTAL 0.3 mg/dL (0.2-1); TOT PROT 7.9 g/dl (6.4-8.2)
[2022-12-18] MEDS ORDERED: CEFTRIAXONE 1,000 MG in DEXTROSE 5%-WATER - 50 ML IVPB ONE (23:42)
[2022-12-18] MEDS ORDERED: CEFTRIAXONE 1 GM/50 ML BAG ONE (23:44)
== END 2022-12-19 05:00 | disposition home or self-care (01) ==
LOC: JER 20:54
PROC: 3E033GC Introduction of Other Therapeutic Substance into Peripheral Vein, Percutaneous Approach (ICD-10-PCS; 2022-12-18)
PROC: 3E0337Z Introduction of Electrolytic and Water Balance Substance into Peripheral Vein, Percutaneous Approach (ICD-10-PCS; 2022-12-18)
PROC: 3E03329 Introduction of Other Anti-infective into Peripheral Vein, Percutaneous Approach (ICD-10-PCS; principal; 2022-12-19)
DX: N30.00 Acute cystitis without hematuria (principal); M54.50 Low back pain, unspecified; R10.9 Unspecified abdominal pain; R30.0 Dysuria; R50.9 Fever, unspecified; K59.00 Constipation, unspecified; R30.9 Painful micturition, unspecified; Z20.822 Contact with and (suspected) exposure to COVID-19
CPT/HCPCS: 0241U-QW; 36415; 71046-TC-FY; 74176-TC; 80053; 81003; 83690; 84484; 85025; 85610; 85730; 86850; 86900; 86901; 87077; 87086; 87186; 93005; 93010; 99285-25

== ENCOUNTER 2022-12-23 06:59 | Emergency (ER) | payer OTHER ==
[2022-12-23 07:23] VITALS: BMI 26.9
[2022-12-23 08:08] VITALS: RESP 16
[2022-12-23] MEDS ORDERED: IBUPROFEN 600 MG TABLET (FP) PO ONE ×2 (08:59→09:20)
[2022-12-23] MEDS ORDERED: ACETAMINOPHEN 325 MG TABLET (FP) PO ONE (08:59)
[2022-12-23] MEDS ORDERED: LIDOCAINE 5% TOPICAL PATCH TP ONE (08:59)
[2022-12-23] MEDS ORDERED: ACETAMINOPHEN 325 MG TABLET (FP) ONE (09:20)
[2022-12-23] MEDS ORDERED: LIDOCAINE 5% TOPICAL PATCH ONE (09:20)
[2022-12-23 09:42] LABS: EPI CELLS 9 /uL (0-25.1); HYALINE CASTS 0 /uL (0-3.1); URINE APPEARANCE CLEAR; URINE BACTERIA 17 /uL (0-1359); URINE BILIRUBIN NEGATIVE (NEGATIVE); URINE COLOR YELLOW; URINE GLUCOSE (UA) NEGATIVE (NEGATIVE); URINE KETONE TRACE (NEGATIVE); URINE LEUK ESTERASE NEGATIVE (NEGATIVE); URINE NITRITE NEGATIVE (NEGATIVE); URINE PROTEIN 1+ (NEGATIVE); URINE RBC 10 /uL (0-23.9); URINE WBC 8 /uL (0-25.8)
[2022-12-23] MEDS ORDERED: METHOCARBAMOL 500 MG TABLET PO ONE (10:26)
[2022-12-23] MEDS ORDERED: METHOCARBAMOL 500 MG TABLET ONE (11:47)
[2022-12-23 11:51] VITALS: TEMP 98.8
[2022-12-23] MEDS ORDERED: metoPROLOL SUCCINATE 25 MG TAB.SR.24H (FP) PO ONE ×2 (12:04→12:37)
[2022-12-23] MEDS ORDERED: amLODIPine BESYLATE 10 MG TABLET (FP) PO ONE (12:04)
[2022-12-23] MEDS ORDERED: amLODIPine BESYLATE 10 MG TABLET (FP) ONE (12:37)
[2022-12-23 14:30] VITALS: BP 177/115; PULSE 83
== END 2022-12-23 14:55 | disposition home or self-care (01) ==
LOC: JER 06:59
DX: M54.41 Lumbago with sciatica, right side (principal)
CPT/HCPCS: 81003; 87086; 99283-25

== ENCOUNTER 2023-07-01 22:26 | Emergency (ER) | payer OTHER ==
[2023-07-01 22:39] VITALS: BMI 24.4
[2023-07-01] MEDS ORDERED: ONDANSETRON 4 MG/2 ML VIAL IVPUSH ONE (23:01)
[2023-07-01] MEDS ORDERED: SODIUM CHLORIDE 0.9% 500 ML INFUS.BAG IV ONE (23:01)
[2023-07-01] MEDS ORDERED: ACETAMINOPHEN 1000 MG/100 ML BAG IVPB ONE (23:03)
[2023-07-01] MEDS ORDERED: METOCLOPRAMIDE HCL INJECTION 10 MG/2 ML VIAL IVPUSH ONE (23:03)
[2023-07-01] MEDS ORDERED: ACETAMINOPHEN INJECTION 100 ML IVPB ONE (23:36)
[2023-07-01] MEDS ORDERED: METOCLOPRAMIDE HCL INJECTION 10 MG/2 ML VIAL ONE (23:36)
[2023-07-01] MEDS ORDERED: LABETALOL HCL 20 MG/4 ML VIAL ONE (23:36)
[2023-07-02] MEDS: LABETALOL HCL 5 MG/1 ML (100MG/20 ML VIAL) IVPUSH ONE ×2 (00:20→00:31)
[2023-07-02 00:30] LABS: BASO % 0.6 % (0-2.0); HEMATOCRIT 41.9 % (32.4-45.2); HEMOGLOBIN 15.3 GM/dL (10.7-15.3); LYMPH % 32.6 % (8-40); MCH 33.5 pg (25.7-33.7); MCHC 36.4 g/dl (32.0-36.0); MEAN PLT VOLUME 8.3 fl (7.5-11.1); MONO % 3.2 % (3.8-10.2); NEUT % 63.6 % (42.8-82.8); PLATELET COUNT 249 10^3/uL (134-434); RBC 4.55 M/mm3 (3.60-5.2); WHITE BLOOD COUNT 4.9 K/mm3 (4.0-10.0)
[2023-07-02 00:38] LABS: INR 1.08 (0.83-1.09); PROTHROMBIN TIME (PATIENT) 12.5 SEC (9.7-13.0)
[2023-07-02 00:41] LABS: ACTIVATED PTT 33.4 SECONDS (25.2-36.5)
[2023-07-02 00:50] LABS: POTASSIUM 3.6 mmol/L (3.5-5.1)
[2023-07-02 00:53] LABS: BLOOD UREA NITROGEN 7.5 mg/dL (7-18); CALCIUM 8.9 mg/dL (8.5-10.1); MAGNESIUM 1.9 mg/dL (1.8-2.4)
[2023-07-02 00:56] LABS: CREATININE 0.7 mg/dL (0.55-1.3)
[2023-07-02 00:57] LABS: BILIRUBIN,TOTAL 0.8 mg/dL (0.2-1)
[2023-07-02 00:58] LABS: TOT PROT 7.9 g/dl (6.4-8.2)
[2023-07-02 03:03] VITALS: BP 144/90; PULSE 63; RESP 17; TEMP 98.4
== END 2023-07-02 03:32 | disposition home or self-care (01) ==
LOC: JER 22:26
PROC: 3E033NZ Introduction of Analgesics, Hypnotics, Sedatives into Peripheral Vein, Percutaneous Approach (ICD-10-PCS; principal; 2023-07-02)
PROC: 3E033GC Introduction of Other Therapeutic Substance into Peripheral Vein, Percutaneous Approach (ICD-10-PCS; 2023-07-02)
PROC: 3E033GC Introduction of Other Therapeutic Substance into Peripheral Vein, Percutaneous Approach (ICD-10-PCS; 2023-07-02)
DX: I10 Essential (primary) hypertension (principal); R42 Dizziness and giddiness; R51.9 Headache, unspecified; R11.2 Nausea with vomiting, unspecified; R30.0 Dysuria; R10.9 Unspecified abdominal pain; M79.604 Pain in right leg
CPT/HCPCS: 36415; 70450-TC; 71045-TC-FY; 80053; 83690; 83735; 84484; 85025; 85610; 85730; 93005; 93010; 99285-25

== ENCOUNTER 2023-08-21 14:02 | Emergency (ER) | payer OTHER ==
[2023-08-21 14:09] VITALS: RESP 18; BMI 31.2
[2023-08-21] MEDS ORDERED: DIPHTH,PERTUSS(ACELL),TET 0.5 ML DISP.SYRIN IM ONE ×2 (14:44→14:46)
[2023-08-21] MEDS ORDERED: ACETAMINOPHEN 500 MG TABLET (FP) PO ONE (14:44)
[2023-08-21] MEDS ORDERED: ACETAMINOPHEN 500 MG TABLET (FP) ONE (14:46)
[2023-08-21] MEDS ORDERED: ACETAMINOPHEN 325 MG TABLET (FP) ONE (14:59)
[2023-08-21 15:56] VITALS: BP 139/85; PULSE 85; TEMP 98.7
== END 2023-08-21 16:50 | disposition home or self-care (01) ==
LOC: JER 14:02 → JERFT 14:02
PROC: 0HQHXZZ Repair Right Upper Leg Skin, External Approach (ICD-10-PCS; principal; 2023-08-21)
PROC: 3E0234Z Introduction of Serum, Toxoid and Vaccine into Muscle, Percutaneous Approach (ICD-10-PCS; 2023-08-21)
DX: S71.111A Laceration without foreign body, right thigh, initial encounter (principal); S80.11XA Contusion of right lower leg, initial encounter; W01.0XXA Fall on same level from slipping, tripping and stumbling without subsequent striking against object, initial encounter; Y92.017 Garden or yard in single-family (private) house as the place of occurrence of the external cause
CPT/HCPCS: 12002-25; 73552-TC-RT-FY; 73590-TC-RT-FY; 90471; 90715; 99283-25

== ENCOUNTER 2023-09-01 11:18 | Emergency (ER) | payer OTHER ==
[2023-09-01 11:27] VITALS: BP 133/87; PULSE 82; RESP 16; TEMP 99.1; BMI 30.2
[2023-09-01] MEDS ORDERED: SODIUM CHLORIDE 0.9% 500 ML INFUS.BAG IV ONE ×2 (12:32→16:10)
[2023-09-01] MEDS ORDERED: ACETAMINOPHEN 1000 MG/100 ML BAG IVPB ONE (12:32)
[2023-09-01] MEDS ORDERED: FAMOTIDINE 20 MG/50 ML IVPB 20 MG/50 ML MG IVPB ONE ×2 (12:32→12:58)
[2023-09-01] MEDS ORDERED: ACETAMINOPHEN INJECTION 100 ML IVPB ONE (12:58)
[2023-09-01 14:12] LABS: BASO % 1.1 % (0-2.0); EOS % 2.1 % (0-4.5); HEMATOCRIT 40.1 % (32.4-45.2); HEMOGLOBIN 13.7 GM/dL (10.7-15.3); LYMPH % 32.9 % (8-40); MCH 32.7 pg (25.7-33.7); MCHC 34.3 g/dl (32.0-36.0); MEAN CELL VOLUME 95.4 fl (80-96); MEAN PLT VOLUME 8.9 fl (7.5-11.1); MONO % 5.1 % (3.8-10.2); NEUT % 58.8 % (42.8-82.8); PLATELET COUNT 344 10^3/uL (134-434); RDW 13.4 % (11.6-15.6)
[2023-09-01 14:31] LABS: POTASSIUM 3.9 mmol/L (3.5-5.1)
[2023-09-01 14:34] LABS: ALBUMIN 4.3 g/dl (3.4-5.0); MAGNESIUM 2.6 mg/dL (1.8-2.4)
[2023-09-01 14:37] LABS: CREATININE 0.5 mg/dL (0.55-1.3)
[2023-09-01 14:38] LABS: TOT PROT 8.2 g/dl (6.4-8.2)
[2023-09-01 14:39] LABS: BILIRUBIN,TOTAL 0.5 mg/dL (0.2-1)
[2023-09-01 15:09] LABS: PH,URINE 6.5 (5.0-8.0); URINE APPEARANCE CLEAR; URINE BILIRUBIN NEGATIVE (NEGATIVE); URINE COLOR YELLOW; URINE GLUCOSE (UA) NEGATIVE (NEGATIVE); URINE KETONE NEGATIVE (NEGATIVE); URINE LEUK ESTERASE NEGATIVE (NEGATIVE); URINE NITRITE NEGATIVE (NEGATIVE); URINE PROTEIN NEGATIVE (NEGATIVE)
== END 2023-09-01 18:36 | disposition home or self-care (01) ==
LOC: JER 11:18
PROC: 3E033GC Introduction of Other Therapeutic Substance into Peripheral Vein, Percutaneous Approach (ICD-10-PCS; principal; 2023-09-01)
PROC: 3E033GC Introduction of Other Therapeutic Substance into Peripheral Vein, Percutaneous Approach (ICD-10-PCS; 2023-09-01)
DX: R19.7 Diarrhea, unspecified (principal); R10.31 Right lower quadrant pain; Z20.822 Contact with and (suspected) exposure to COVID-19
CPT/HCPCS: 0241U-QW; 36415; 74177-TC; 80053; 81003; 82272; 83690; 83735; 84484; 85025; 87086; 93005; 93010; 99285-25; Q9967

== ENCOUNTER 2023-09-15 02:48 | Emergency (ER) | payer OTHER ==
[2023-09-15 03:08] VITALS: BMI 28.3
[2023-09-15 04:21] LABS: BASO % 0.6 % (0-2.0); EOS % 5.3 % (0-4.5); HEMATOCRIT 36.9 % (32.4-45.2); HEMOGLOBIN 12.6 GM/dL (10.7-15.3); LYMPH % 36.4 % (8-40); MCH 32.7 pg (25.7-33.7); MCHC 34.1 g/dl (32.0-36.0); MEAN CELL VOLUME 95.9 fl (80-96); MEAN PLT VOLUME 8.4 fl (7.5-11.1); MONO % 9.1 % (3.8-10.2); NEUT % 48.6 % (42.8-82.8); PLATELET COUNT 272 10^3/uL (134-434); RBC 3.85 M/mm3 (3.60-5.2); WHITE BLOOD COUNT 5.2 K/mm3 (4.0-10.0)
[2023-09-15 04:31] LABS: INR 0.96 (0.83-1.09); PROTHROMBIN TIME (PATIENT) 11.1 SEC (9.7-13.0)
[2023-09-15 04:33] LABS: ACTIVATED PTT 33.9 SECONDS (25.2-36.5)
[2023-09-15 04:46] LABS: POTASSIUM 3.5 mmol/L (3.5-5.1)
[2023-09-15 04:50] LABS: CALCIUM 9.2 mg/dL (8.5-10.1)
[2023-09-15 04:51] LABS: ALBUMIN 3.8 g/dl (3.4-5.0); BLOOD UREA NITROGEN 10.6 mg/dL (7-18)
[2023-09-15 04:53] LABS: CREATININE 0.5 mg/dL (0.55-1.3)
[2023-09-15 04:55] LABS: BILIRUBIN,TOTAL 0.7 mg/dL (0.2-1); TOT PROT 7.6 g/dl (6.4-8.2)
[2023-09-15 08:50] LABS: PH,URINE 6.5 (5.0-8.0); URINE APPEARANCE CLEAR; URINE BILIRUBIN NEGATIVE (NEGATIVE); URINE COLOR YELLOW; URINE GLUCOSE (UA) NEGATIVE (NEGATIVE); URINE KETONE NEGATIVE (NEGATIVE); URINE LEUK ESTERASE NEGATIVE (NEGATIVE); URINE NITRITE NEGATIVE (NEGATIVE); URINE PROTEIN NEGATIVE (NEGATIVE)
[2023-09-15 10:21] VITALS: BP 145/91; PULSE 63; RESP 20; TEMP 97.6
== END 2023-09-15 10:53 | disposition home or self-care (01) ==
LOC: JER 02:48
DX: R07.89 Other chest pain (principal); M54.9 Dorsalgia, unspecified; R30.0 Dysuria; R35.0 Frequency of micturition; R06.02 Shortness of breath; Z20.822 Contact with and (suspected) exposure to COVID-19
CPT/HCPCS: 0241U-QW; 36415; 71045-TC-FY; 71275-TC; 74174-TC; 80053; 81003; 82550; 83605; 83690; 84484; 85025; 85610; 85730; 86850; 86900; 86901; 87086; 93005; 93010; 99285-25; Q9967

== ENCOUNTER 2023-09-27 03:01 | Emergency (ER) | payer OTHER ==
[2023-09-27 03:13] VITALS: BP 189/114; PULSE 92; RESP 18; TEMP 98.5; BMI 27.2
[2023-09-27] MEDS ORDERED: amLODIPine BESYLATE 10 MG TABLET (FP) PO ONE (03:41)
[2023-09-27] MEDS ORDERED: amLODIPine BESYLATE 10 MG TABLET (FP) ONE (03:46)
== END 2023-09-27 05:00 | disposition left against medical advice (07) ==
LOC: JER 03:01
DX: M79.604 Pain in right leg (principal); M54.9 Dorsalgia, unspecified
CPT/HCPCS: 99281-25

== ENCOUNTER 2023-10-11 09:23 | Emergency (ER) | payer OTHER ==
[2023-10-11 09:47] VITALS: BMI 20.7
[2023-10-11 11:32] LABS: HEMATOCRIT 39.4 % (32.4-45.2); HEMOGLOBIN 13.8 GM/dL (10.7-15.3); MCH 33.6 pg (25.7-33.7); MCHC 34.9 g/dl (32.0-36.0); MEAN CELL VOLUME 96.4 fl (80-96); MEAN PLT VOLUME 8.8 fl (7.5-11.1); PLATELET COUNT 272 10^3/uL (134-434); RBC 4.09 M/mm3 (3.60-5.2); RDW 12.9 % (11.6-15.6)
[2023-10-11 11:58] LABS: POTASSIUM 4.1 mmol/L (3.5-5.1)
[2023-10-11 11:59] LABS: CALCIUM 9.3 mg/dL (8.5-10.1)
[2023-10-11 12:00] LABS: ALBUMIN 3.6 g/dl (3.4-5.0); BLOOD UREA NITROGEN 10.3 mg/dL (7-18)
[2023-10-11 12:03] LABS: CREATININE 0.7 mg/dL (0.55-1.3)
[2023-10-11 12:05] LABS: BILIRUBIN,TOTAL 0.6 mg/dL (0.2-1); TOT PROT 7.3 g/dl (6.4-8.2)
[2023-10-11 12:29] LABS: PH,URINE 6.5 (5.0-8.0); URINE APPEARANCE CLEAR; URINE BILIRUBIN NEGATIVE (NEGATIVE); URINE COLOR YELLOW; URINE GLUCOSE (UA) NEGATIVE (NEGATIVE); URINE KETONE NEGATIVE (NEGATIVE); URINE LEUK ESTERASE NEGATIVE (NEGATIVE); URINE NITRITE NEGATIVE (NEGATIVE); URINE PROTEIN NEGATIVE (NEGATIVE)
[2023-10-11 14:49] VITALS: BP 112/71; PULSE 88; RESP 20; TEMP 98.4
== END 2023-10-11 14:50 | disposition home or self-care (01) ==
LOC: JER 09:23
DX: R10.31 Right lower quadrant pain (principal); R30.0 Dysuria; R35.0 Frequency of micturition
CPT/HCPCS: 36415; 74177-TC; 80053; 81003; 85027; 87077; 87086; 99285-25; Q9967

== ENCOUNTER 2023-10-22 12:00 | Emergency (ER) | payer OTHER ==
[2023-10-22 12:09] VITALS: PULSE 89; TEMP 98.1; BMI 25.2
[2023-10-22] MEDS ORDERED: LIDOCAINE 4% PATCH TP ONE (14:07)
[2023-10-22] MEDS ORDERED: KETOROLAC TROMETHAMINE 15 MG/ML VIAL ONE (14:07)
[2023-10-22] MEDS ORDERED: ACETAMINOPHEN INJECTION 100 ML IVPB ONE (14:07)
[2023-10-22] MEDS: LIDOCAINE 5% TOPICAL PATCH TP ONE (14:35)
[2023-10-22] MEDS: ACETAMINOPHEN 1000 MG/100 ML BAG IVPB ONE (14:35)
[2023-10-22] MEDS: KETOROLAC TROMETHAMINE 15 MG/ML VIAL IVPUSH ONE (14:35)
[2023-10-22 14:45] LABS: BASO % 0.9 % (0-2.0); EOS % 0.7 % (0-4.5); HEMATOCRIT 42.8 % (32.4-45.2); HEMOGLOBIN 14.9 GM/dL (10.7-15.3); LYMPH % 25.5 % (8-40); MCH 33.3 pg (25.7-33.7); MCHC 34.9 g/dl (32.0-36.0); MEAN CELL VOLUME 95.4 fl (80-96); MEAN PLT VOLUME 8.8 fl (7.5-11.1); NEUT % 66.9 % (42.8-82.8); PLATELET COUNT 347 10^3/uL (134-434); RBC 4.49 M/mm3 (3.60-5.2); RDW 12.5 % (11.6-15.6); WHITE BLOOD COUNT 8.4 K/mm3 (4.0-10.0)
[2023-10-22 14:52] LABS: INR 1.06 (0.83-1.09); PROTHROMBIN TIME (PATIENT) 12.3 SEC (9.7-13.0)
[2023-10-22 14:54] LABS: ACTIVATED PTT 32.5 SECONDS (25.2-36.5)
[2023-10-22 15:00] LABS: POTASSIUM 4.2 mmol/L (3.5-5.1)
[2023-10-22 15:01] LABS: CALCIUM 10.4 mg/dL (8.5-10.1)
[2023-10-22 15:02] LABS: ALBUMIN 4.2 g/dl (3.4-5.0); BLOOD UREA NITROGEN 7.2 mg/dL (7-18)
[2023-10-22 15:05] LABS: CREATININE 0.5 mg/dL (0.55-1.3)
[2023-10-22 15:07] LABS: BILIRUBIN,TOTAL 0.6 mg/dL (0.2-1); TOT PROT 8.5 g/dl (6.4-8.2)
[2023-10-22 16:13] LABS: PH,URINE 6.5 (5.0-8.0); URINE APPEARANCE CLEAR; URINE BILIRUBIN NEGATIVE (NEGATIVE); URINE COLOR YELLOW; URINE GLUCOSE (UA) NEGATIVE (NEGATIVE); URINE KETONE NEGATIVE (NEGATIVE); URINE LEUK ESTERASE NEGATIVE (NEGATIVE); URINE NITRITE NEGATIVE (NEGATIVE); URINE PROTEIN NEGATIVE (NEGATIVE)
[2023-10-22 16:18] LABS: EPI CELLS 22 /uL (0-25.1); HYALINE CASTS 0 /uL (0-3.1); URINE BACTERIA 223 /uL (0-1359); URINE RBC 7 /uL (0-23.9)
[2023-10-22 18:25] VITALS: BP 130/80; RESP 19
== END 2023-10-22 18:24 | disposition home or self-care (01) ==
LOC: JER 12:00
PROC: 3E033NZ Introduction of Analgesics, Hypnotics, Sedatives into Peripheral Vein, Percutaneous Approach (ICD-10-PCS; principal; 2023-10-22)
PROC: 3E033GC Introduction of Other Therapeutic Substance into Peripheral Vein, Percutaneous Approach (ICD-10-PCS; 2023-10-22)
DX: R07.9 Chest pain, unspecified (principal); M54.41 Lumbago with sciatica, right side; R20.0 Anesthesia of skin; R20.2 Paresthesia of skin; M79.604 Pain in right leg; G89.29 Other chronic pain; Z20.822 Contact with and (suspected) exposure to COVID-19
CPT/HCPCS: 0241U-QW; 36415; 71046-TC-FY; 80053; 81003; 84484; 85025; 85610; 85730; 87086; 93005; 93010; 99291; J0131

== ENCOUNTER 2023-10-28 07:15 | Emergency (ER) | payer OTHER ==
[2023-10-28 07:38] VITALS: TEMP 98.4; BMI 28.5
[2023-10-28] MEDS ORDERED: IBUPROFEN 600 MG TABLET (FP) PO ONE (08:57)
[2023-10-28] MEDS ORDERED: ACETAMINOPHEN 500 MG TABLET (FP) ONE (08:58)
[2023-10-28] MEDS: IBUPROFEN 600 MG TABLET (FP) PO ONE (09:08)
[2023-10-28] MEDS: ACETAMINOPHEN 500 MG TABLET (FP) PO ONE (09:08)
[2023-10-28 09:57] VITALS: BP 149/98; PULSE 66; RESP 18
== END 2023-10-28 10:01 | disposition home or self-care (01) ==
LOC: JERFT 07:15 → JER 07:15 → JERFT 10:01
DX: M47.816 Spondylosis without myelopathy or radiculopathy, lumbar region (principal); M47.814 Spondylosis without myelopathy or radiculopathy, thoracic region; M54.6 Pain in thoracic spine; G89.29 Other chronic pain
CPT/HCPCS: 72070-TC-FY; 72100-TC-FY; 99283-25

== ENCOUNTER 2024-01-19 04:14 | Emergency (ER) | payer OTHER ==
[2024-01-19 04:21] VITALS: RESP 20; BMI 29.2
[2024-01-19] MEDS ORDERED: ACETAMINOPHEN INJECTION 100 ML IVPB ONE (05:08)
[2024-01-19] MEDS ORDERED: KETOROLAC TROMETHAMINE 15 MG/ML VIAL ONE (05:08)
[2024-01-19] MEDS: KETOROLAC TROMETHAMINE 15 MG/ML VIAL IVPUSH ONE (05:34)
[2024-01-19] MEDS: LACTATED RINGERS SOLUTION 1000 ML INFUS.BAG IV ONE (05:34)
[2024-01-19] MEDS: morphine CARPU-JECT 4 MG/1 ML DISP.SYRIN IVPUSH ONE (05:34)
[2024-01-19] MEDS: ACETAMINOPHEN 1000 MG/100 ML BAG IVPB ONE (05:34)
[2024-01-19 06:09] VITALS: BP 150/90; PULSE 60; TEMP 97.9
[2024-01-19 06:26] LABS: PH,URINE 5.5 (5.0-8.0); URINE APPEARANCE CLEAR; URINE BILIRUBIN NEGATIVE (NEGATIVE); URINE COLOR YELLOW; URINE GLUCOSE (UA) NEGATIVE (NEGATIVE); URINE KETONE NEGATIVE (NEGATIVE); URINE LEUK ESTERASE NEGATIVE (NEGATIVE); URINE NITRITE NEGATIVE (NEGATIVE); URINE PROTEIN NEGATIVE (NEGATIVE)
[2024-01-19 06:27] LABS: EOS % 4.9 % (0-4.5); HEMATOCRIT 41.3 % (32.4-45.2); LYMPH % 43.5 % (8-40); MCH 31.7 pg (25.7-33.7); MEAN CELL VOLUME 93.3 fl (80-96); MEAN PLT VOLUME 8.8 fl (7.5-11.1); MONO % 8.5 % (3.8-10.2); NEUT % 42.1 % (42.8-82.8); PLATELET COUNT 281 10^3/uL (134-434); RBC 4.43 M/mm3 (3.60-5.2); WHITE BLOOD COUNT 4.9 K/mm3 (4.0-10.0)
[2024-01-19 06:41] LABS: POTASSIUM 3.5 mmol/L (3.5-5.1)
[2024-01-19 06:43] LABS: CALCIUM 9.2 mg/dL (8.5-10.1)
[2024-01-19 06:44] LABS: ALBUMIN 4.1 g/dl (3.4-5.0); BLOOD UREA NITROGEN 7.6 mg/dL (7-18); MAGNESIUM 2.3 mg/dL (1.8-2.4)
[2024-01-19 06:47] LABS: CREATININE 0.6 mg/dL (0.55-1.3)
[2024-01-19 06:48] LABS: INR 1.02 (0.83-1.09); PROTHROMBIN TIME (PATIENT) 11.5 SEC (9.7-13.0)
[2024-01-19 06:49] LABS: BILIRUBIN,TOTAL 0.8 mg/dL (0.2-1); TOT PROT 8.1 g/dl (6.4-8.2)
[2024-01-19 06:50] LABS: ACTIVATED PTT 35.5 SECONDS (25.2-36.5)
== END 2024-01-19 10:33 | disposition left against medical advice (07) ==
LOC: JER 04:14
PROC: 3E033NZ Introduction of Analgesics, Hypnotics, Sedatives into Peripheral Vein, Percutaneous Approach (ICD-10-PCS; principal; 2024-01-19)
PROC: 3E0333Z Introduction of Anti-inflammatory into Peripheral Vein, Percutaneous Approach (ICD-10-PCS; 2024-01-19)
DX: R10.11 Right upper quadrant pain (principal); M54.9 Dorsalgia, unspecified; N39.0 Urinary tract infection, site not specified; R30.0 Dysuria; R10.31 Right lower quadrant pain; Z20.822 Contact with and (suspected) exposure to COVID-19
CPT/HCPCS: 0241U-QW; 36415; 80053; 81003; 83735; 84484; 85025; 85610; 85730; 86850; 86900; 86901; 87086; 93005; 93010; 99284-25; J0131

== ENCOUNTER 2024-07-07 13:02 | Emergency (ER) | payer OTHER ==
[2024-07-07 13:56] VITALS: BMI 32.3
[2024-07-07] MEDS ORDERED: amLODIPine BESYLATE 10 MG TABLET (FP) ONE (14:39)
[2024-07-07] MEDS ORDERED: ACETAMINOPHEN 325 MG TABLET (FP) ONE (14:40)
[2024-07-07] MEDS ORDERED: LIDOCAINE 5% TOPICAL PATCH ONE (14:40)
[2024-07-07] MEDS: LIDOCAINE 5% TOPICAL PATCH TP ONE (14:47)
[2024-07-07] MEDS: ACETAMINOPHEN 500 MG TABLET (FP) PO ONE (14:48)
[2024-07-07] MEDS: amLODIPine BESYLATE 10 MG TABLET (FP) PO ONE (14:48)
[2024-07-07] MEDS ORDERED: CYCLOBENZAPRINE HCL 5 MG TABLET ONE (15:00)
[2024-07-07] MEDS: CYCLOBENZAPRINE HCL 5 MG TABLET PO ONE (15:13)
[2024-07-07 16:28] VITALS: BP 154/109; PULSE 75; RESP 20; TEMP 98.2
[2024-07-07] MEDS ORDERED: LIDOCAINE PATCH REMOVAL MC SCH (22:00)
[2024-07-08] MEDS ORDERED: CYCLOBENZAPRINE HCL 5 MG TABLET PO ONE (14:57)
== END 2024-07-07 17:41 | disposition home or self-care (01) ==
LOC: JER 13:02
DX: R51.9 Headache, unspecified (principal); M54.6 Pain in thoracic spine; R42 Dizziness and giddiness; M79.606 Pain in leg, unspecified
CPT/HCPCS: 72070-TC-FY; 93005; 93010; 99284-25

== ENCOUNTER 2025-07-07 08:09 | Emergency (ER) | payer OTHER ==
[2025-07-07 08:19] VITALS: BMI 27.6
[2025-07-07] MEDS ORDERED: ACETAMINOPHEN INJECTION 100 ML ONE (09:24)
[2025-07-07] MEDS: ACETAMINOPHEN 1000 MG/100 ML BAG IVPB ONE (09:32)
[2025-07-07] MEDS: SODIUM CHLORIDE 0.9% 500 ML INFUS.BAG IV ONE (09:32)
[2025-07-07 09:33] LABS: ABSOLUTE IMMATURE GRANULOCYTES 0.01 x10^3/uL (0.0-0.031); BASOPHILS # 0.04 x10^3/uL (0.01-0.08); EOSINOPHIL % 3.4 % (0.7-5.8); EOSINOPHILS # 0.16 x10^3/uL (0.04-0.36); MCHC 33.9 g/dl (32.2-35.5); MEAN CELL VOLUME 94.4 fl (79.4-94.8); MEAN PLT VOLUME 10.4 fl (9.4-12.3); MONOCYTE # 0.40 x10^3/uL (0.24-0.86); MONOCYTE % 8.5 % (4.7-12.5); RDW 12.3 % (12.4-16.4)
[2025-07-07 09:38] LABS: INR 1.05 (0.83-1.09); PROTHROMBIN TIME (PATIENT) 11.6 SEC (9.7-13.0)
[2025-07-07 09:41] LABS: ACTIVATED PTT 32.3 SECONDS (25.2-36.5)
[2025-07-07 10:00] LABS: GLUCOSE,RANDOM 101 mg/dL (74-106)
[2025-07-07 10:01] LABS: CO2 24 mmol/L (21-32); TOT PROT 8.0 g/dl (6.4-8.2)
[2025-07-07 10:03] LABS: ALK PHOS 94 U/L (40-150)
[2025-07-07 10:06] LABS: CREATININE 0.52 mg/dL (0.55-1.3); SGOT/AST 49 U/L (5-34); SGPT/ALT 44 U/L (0-55)
[2025-07-07 10:23] VITALS: RESP 18
[2025-07-07 11:01] LABS: URINE APPEARANCE CLEAR; URINE BILIRUBIN NEGATIVE (NEGATIVE); URINE COLOR YELLOW; URINE GLUCOSE (UA) NEGATIVE (NEGATIVE); URINE KETONE NEGATIVE (NEGATIVE); URINE LEUK ESTERASE NEGATIVE (NEGATIVE); URINE NITRITE NEGATIVE (NEGATIVE); URINE PROTEIN NEGATIVE (NEGATIVE); URINE UROBILINOGEN 1.0 mg/dL (0.2-1.0)
[2025-07-07 11:37] VITALS: BP 172/93; PULSE 64; TEMP 97.8
[2025-07-07 12:51] LABS: HIV INTERPRETATION NEGATIVE (NEGATIVE)
[2025-07-07 13:27] LABS: HCV DIAGNOSTIC IN-HOUSE W/RFLX REACTIVE (NONREACTIVE)
== END 2025-07-07 12:35 | disposition home or self-care (01) ==
LOC: JER 08:09
PROC: 3E033NZ Introduction of Analgesics, Hypnotics, Sedatives into Peripheral Vein, Percutaneous Approach (ICD-10-PCS; principal; 2025-07-07)
DX: I10 Essential (primary) hypertension (principal); R51.9 Headache, unspecified; M54.2 Cervicalgia; R06.02 Shortness of breath; H53.8 Other visual disturbances; R25.1 Tremor, unspecified; R27.8 Other lack of coordination; R07.9 Chest pain, unspecified; M54.50 Low back pain, unspecified; T46.5X6A Underdosing of other antihypertensive drugs, initial encounter; Z91.148 Patient's other noncompliance with medication regimen for other reason
CPT/HCPCS: 36415; 70450-TC; 70496-TC; 70498-TC; 71045-TC-FY; 80053; 80307; 81003; 82550; 82962; 84484; 85025; 85610; 85730; 86803; 86850; 86900; 86901; 87086; 87389; 87522; 93005; 93010; 99285-25